=== PATIENT | male | born 1965 | race Caucasian/White ===

== ENCOUNTER 2017-03-21 08:33 | Day surgery (SDC) | payer BC ==
[2017-03-21] MEDS ORDERED: D5 LR 1000 ML 1,000 ML IV ONE (09:03)
[2017-03-21 09:43] LABS: BASOPHILS % (AUTO) 0.7 % (0.2-1.0); EOSINOPHILS # (AUTO) 0.2 x10^3/uL (0.0-0.2); EOSINOPHILS % (AUTO) 3.1 % (0.9-2.9); HEMATOCRIT 44.4 % (42.0-54.0); HEMOGLOBIN 14.8 g/dL (13.5-18.0); LYMPHOCYTES # (AUTO) 1.9 X10^3/uL (1.3-2.9); LYMPHOCYTES % (AUTO) 32.6 % (21.0-51.0); MEAN CORPUSCULAR HEMOGLOBIN 26.8 pg (27.0-34.0); MEAN CORPUSCULAR HGB CONC 33.4 g/dL (33.0-35.0); MEAN CORPUSCULAR VOLUME 80.1 fL (80.0-100.0); MEAN PLATELET VOLUME 8.3 fL (7.4-11.0); MONOCYTES # (AUTO) 0.4 x10^3/uL (0.3-0.8); MONOCYTES % (AUTO) 7.3 % (0.0-13.0); NEUTROPHILS # (AUTO) 3.3 x10^3/uL (2.2-4.8); NEUTROPHILS % (AUTO) 56.3 % (42.0-75.0); PLATELET COUNT 243 X10^3/uL (150.0-450.0); RED BLOOD COUNT 5.54 X10^6/uL (4.7-6.0); RED CELL DISTRIBUTION WIDTH 15.3 % (11.6-16.5); WHITE BLOOD COUNT 5.8 X10^3/uL (3.6-10.0)
[2017-03-21 09:50] LABS: ALANINE AMINOTRANSFERASE 36 Units/L (12-78); ALBUMIN 3.5 g/dL (3.4-5.0); ALKALINE PHOSPHATASE 47 Units/L (46-116); ASPARTATE AMINO TRANSFERASE 20 Units/L (15-37); BLOOD UREA NITROGEN 13 mg/dL (7-18); CALCIUM 8.7 mg/dL (8.5-10.1); CHLORIDE 104 mmol/L (98-107); COR NA(FOR HYPERGLY) 141 mmol/L (136-145); CREATININE 0.89 mg/dL (0.70-1.30); SODIUM 141 mmol/L (136-145); TOTAL PROTEIN 7.4 g/dL (6.4-8.2); eGFR BLACK RACES > 60 (>60); eGFR NON BLACK RACES > 60 (>60)
[2017-03-21] MEDS: NS 100 ML IV 100 ML IV ONE ×2 (10:39→10:50)
[2017-03-21] MEDS: MARCAINE 0.25% INJ ONE ×2 (10:39→11:17)
[2017-03-21] MEDS: ANCEF VIAL 1 GM ONE ×2 (10:39→10:50)
[2017-03-21] MEDS: XYLOCAINE 1% and EPINEPHRINE 1:100,000 ONE ×2 (10:40→11:17)
[2017-03-21] MEDS ORDERED: FENTANYL INJ 250 mcg ONE (10:44)
[2017-03-21] MEDS ORDERED: NS IRRIGATION 1000 ML 1,000 ML IR ONE (11:22)
[2017-03-21] MEDS ORDERED: BENADRYL INJ 50 MG VIAL IVP PRN (12:50)
[2017-03-21] MEDS ORDERED: PHENERGAN INJ 25 MG IVP PRN (12:50)
[2017-03-21] MEDS ORDERED: REGLAN INJ 10 MG VIAL IVP PRN (12:50)
[2017-03-21] MEDS ORDERED: DILAUDID INJ IVP PRN (12:50)
[2017-03-21] MEDS ORDERED: ZOFRAN INJ 4 MG VIAL IVP PRN ×2 (12:50→13:06)
[2017-03-21] MEDS ORDERED: DILAUDID INJ ONE (13:05)
[2017-03-21] MEDS ORDERED: PERCOCET TAB 5/325 MG PO PRN (13:06)
[2017-03-21] MEDS ORDERED: PHENERGAN INJ 25 MG ONE (13:07)
--- NOTE | 2017-03-21 13:41 | OR.GENERIC ---
Post-Op Note Generic - Post-Op Note Operative Report: Date of Operation: March 21, 2017 Pre-Operative Diagnosis: Incarcerated umbilical hernia. Post-Operative Diagnosis: Incarcerated umbilical hernia. Procedure: Open umbilical hernia repair with underlay mesh (Bard Ventralex, 6.4 cm). Surgeon: Surjit Su MD Production Material Coordinator: Mk Kelly CRNA Specimens: None. Estimated blood loss: Minimal. Complications: None. Summary: The patient is a 51 year old male who presented with an incarcerated umbilical hernia. The patient was offered umbilical hernia repair. The risk and benefits of the procedure including difficulty with anesthesia, bleeding, infection, injury to intraabdominal contents requiring further surgery, recurrence, DVT, as well as PE were discussed with the patient. The patient understood these risks and requested the procedure. On July 13, 2016, the patient was brought to the operative theatre. A time out was performed verifying the patient and procedure. The patient received Ancef for pre-operative antibiosis. After satisfactory induction of general endotracheal anesthesia, the abdomen was prepped with Chloraprep and draped in the usual sterile fashion. The skin was incised sharply in a curvilinear fashion inferior to the umbilicus. The incision was slowly carried through the dermis sharply until the hernia sac was encountered. The hernia sac was elevated and opened sharply. Incarcerated omentum was seen in the hernia sac. The omentum was cleared using sharp and blunt dissection along with electrocautery sparingly. The hernia sac was then cleared from the umbilical stalk and the fascia circumferentially. The fascial defect measured approximately 2 cm. A Bard Ventralex 6.4 cm circular mesh was placed in an underlay fashion and sutured to the fascia using 0-Prolene horizontal mattress sutures. The fascia was re-approximated transversely using interrupted #1 PDS sutures. The wound was irrigated. Bleeding was controlled using electrocautery. The umbilical stalk was sutured to the fascia using 0-Vicryl sutures x 2. The dermis was re-approximated using inverted, interrupted 3-0 Vicryl sutures. The skin edges were re-approximated using a running 4-0 Monocryl stitch. Mastisol and Steri-strips were placed. Sterile dressings were placed. The patient was awakened and taken to the recovery room in stable condition. There were no complications. All counts were correct.
[2017-03-21] MEDS ORDERED: PERCOCET TAB 5/325 MG ONE (14:56)
[2017-03-21] MEDS ORDERED: QUELICIN (OR ANECTINE) ONE (15:30)
[2017-03-21] MEDS ORDERED: SUPRANE IN ONE (15:30)
[2017-03-21] MEDS ORDERED: ROBINUL ONE (15:30)
[2017-03-21] MEDS ORDERED: NORCURON INJ 10 MG VIAL ONE (15:30)
[2017-03-21] MEDS ORDERED: LTA KIT LIDOCAINE 4% ONE (15:30)
[2017-03-21] MEDS ORDERED: DIPRIVAN VIAL ONE (15:30)
[2017-03-21] MEDS ORDERED: XYLOCAINE 2 % (PLAIN) ONE (15:30)
[2017-03-21] MEDS ORDERED: ZOFRAN INJ 4 MG VIAL ONE (15:30)
[2017-03-21] MEDS ORDERED: VERSED ONE (15:30)
[2017-03-21] MEDS ORDERED: NEOSTIGMINE INJ ONE (15:30)
[2017-03-21 16:29] VITALS: BP 115/70
== END 2017-03-21 16:00 | disposition home or self-care (01) ==
LOC: SURG1 08:33
PROVIDERS: ATTEND Student in an Organized Health Care Education/Training Program
PROC: 0WUF0JZ Supplement Abdominal Wall with Synthetic Substitute, Open Approach (ICD-10-PCS; principal; 2017-03-21 08:30)
DX: K42.0 Umbilical hernia with obstruction, without gangrene (principal)
CPT/HCPCS: 36415; 80053; 85025; A4216; A4222; S0020; J0330; J0690; J1170; J2001; J2250; J2405; J2550; J2710; J3010; J3490; J7120